=== PATIENT | male | born 1995 | race Caucasian/White ===

== ENCOUNTER 2016-12-23 20:02 | Emergency (ER) | payer OTHER ==
[2016-12-23] MEDS ORDERED: DIPHTH,PERTUSS(ACELL),TET VAC 0.5 ML VIAL IM V ONE (22:02)
[2016-12-23] MEDS ORDERED: CEPHALEXIN 500 MG CAPSULE ONE (22:02)
[2016-12-23] MEDS ORDERED: SULFAMETHOXAZOLE 800 MG/TRIMETHOPRIM 160 MG TABLET ONE (22:02)
== END 2016-12-23 22:18 | disposition home or self-care (01) ==
LOC: ED 20:02
DX: L02.416 Cutaneous abscess of left lower limb (principal); F17.210 Nicotine dependence, cigarettes, uncomplicated; Z23 Encounter for immunization
CPT/HCPCS: 90715; 90471; 99283 ×2; 10061 ×2; A9270 ×2